=== PATIENT | male | born 1985 | race Caucasian/White ===

== ENCOUNTER 2020-07-27 19:07 | Emergency (ER) | payer OTHER ==
[~2020-07-27] VITALS: Ht 172.7 cm; Wt 77.3 kg
[2020-07-27] MEDS ORDERED: NS 1,000 ML IV ONE (19:45)
[2020-07-27] MEDS ORDERED: ONDANSETRON 4MG/2ML VIAL IV ONE (19:45)
[2020-07-27] MEDS ORDERED: KETOROLAC 30 MG/ML 1ML VIAL IV ONE (19:45)
[2020-07-27] MEDS ORDERED: PANTOPRAZOLE 40MG VIAL (C9113 PER 1) IV ONE (19:45)
[2020-07-27 19:51] LABS: BASO # 0.1 10^3/uL (0.0-0.2); BASO % 0.4 % (0.0-1.0); EOS # 0.1 10^3/uL (0.0-0.5); EOS % 1.2 % (0.0-3.0); HEMATOCRIT 46.6 % (42.0-52.0); HEMOGLOBIN 15.9 g/dl (13.5-17.5); LYMPH # 2.1 10^3/uL (1.5-5.0); LYMPH % 17.6 % (24.0-44.0); MEAN CORPUSCULAR HEMOGLOBIN 29.3 pg (27.0-33.0); MEAN CORPUSCULAR HGB CONC 34.1 g/dl (32.0-36.5); MONO # 1.1 10^3/uL (0.0-0.8); MONO % 8.9 % (0.0-5.0); NEUTROPHILS # 8.4 10^3/uL (1.5-8.5); NEUTROPHILS % 71.6 % (36.0-66.0); PLATELET COUNT, AUTOMATED 252 10^3/uL (150-450); RED BLOOD COUNT 5.42 10^6/uL (4.30-6.10); WHITE BLOOD COUNT 11.8 10^3/uL (4.0-10.0)
[2020-07-27 20:22] LABS: ALBUMIN 4.4 GM/DL (3.2-5.2); ALT/SGPT 30 U/L (12-78); AMYLASE 60 U/L (25-115); BILIRUBIN,DIRECT 0.3 MG/DL (0.0-0.2); BILIRUBIN,TOTAL 0.9 MG/DL (0.2-1.0); BLOOD UREA NITROGEN 12 MG/DL (7-18); CALCIUM LEVEL 9.5 MG/DL (8.5-10.1); CARBON DIOXIDE LEVEL 31 MEQ/L (21-32); CHLORIDE LEVEL 102 MEQ/L (98-107); CREATININE FOR GFR 1.17 MG/DL (0.70-1.30); GLOMERULAR FILTRATION RATE > 60.0 (>60); GLUCOSE, FASTING 95 MG/DL (70-100); LIPASE 107 U/L (73-393); POTASSIUM SERUM 4.6 MEQ/L (3.5-5.1); SODIUM LEVEL 138 MEQ/L (136-145); TOTAL PROTEIN 7.8 GM/DL (6.4-8.2)
--- NOTE | 2020-07-27 20:25 | REPVR ---
PROCEDURE INFORMATION: Exam: XR Complete Acute Abdomen Series Exam date and time: 07/27/2020 8:03 PM Age: 34 years old Clinical indication: Abdominal pain TECHNIQUE: Imaging protocol: XR complete acute abdomen series, including 2 or more views of the abdomen and a single view chest. COMPARISON: No relevant prior studies available. FINDINGS: Lungs: Normal. No consolidation. Pleural space: Normal. No pneumothorax. Heart/Mediastinum: Normal. No cardiomegaly. Gastrointestinal tract: Normal. No bowel dilation. Intraperitoneal space: Normal. No free air. Bones/joints: Normal. No acute fracture. Soft tissues: Normal. IMPRESSION: No acute findings. Electronically signed by: Blake Melchor On 07/27/2020 20:25:56 PM
[2020-07-27] MEDS ORDERED: PEPC1TAB5 PO (21:05)
[2020-07-27] MEDS ORDERED: ZOFR4TAB16 PO (21:05)
[2020-07-27 21:25] VITALS: BP 129/78
--- NOTE | 2020-07-27 22:22 | ECGEPIP ---
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
== END 2020-07-27 21:28 | disposition home or self-care (01) ==
LOC: M ED 19:07
DX: K29.70 Gastritis, unspecified, without bleeding (principal)
CPT/HCPCS: 74021; 80048; 80076; 82150; 83690; 85025; 93005; 96361; 96374; 96375; 99284; C9113; J1885; J2405

== ENCOUNTER 2020-07-28 10:36 | Inpatient (IN) | payer OTHER ==
[~2020-07-28] VITALS: Ht 172.7 cm; Wt 85.0 kg
[~2020-07-28 10:36] MED LIST: PEPC1TAB5 PO; ZOFR4TAB16 PO
[2020-07-28] MEDS ORDERED: NS 1,000 ML IV ONE (12:00)
[2020-07-28] MEDS ORDERED: MORPHINE 4 MG/ML 1ML VIAL/SYRINGE (J2270) IV ONE (12:00)
[2020-07-28] MEDS ORDERED: ONDANSETRON 4MG/2ML VIAL IV ONE (12:00)
--- NOTE | 2020-07-28 12:38 | REP ---
INDICATION: RUQ/epigastric pain COMPARISON: None. TECHNIQUE: Real time pimentel scale ultrasound examination using curved array transducer. FINDINGS: The gallbladder is contracted with multiple gallstones and chronic appearing wall thickening to approximately 3 mm. No pericholecystic fluid is appreciated. The common bile duct is dilated to 6.8 mm although no obvious obstructing calculus is identifiable. Liver and visualized pancreas are normal. Right kidney is normal measuring 10.1 x 5.0 x 4.3 cm without hydronephrosis. No ascites. IMPRESSION: Cholelithiasis with gallbladder wall thickening and mildly prominent common bile duct. <Electronically signed by Ruy Barrios > 07/28/20 [id number]
[2020-07-28 12:59] LABS: BASO % 0.3 % (0.0-1.0); EOS # 0.1 10^3/uL (0.0-0.5); EOS % 0.8 % (0.0-3.0); HEMATOCRIT 43.1 % (42.0-52.0); HEMOGLOBIN 14.6 g/dl (13.5-17.5); LYMPH % 16.4 % (24.0-44.0); MEAN CORPUSCULAR HEMOGLOBIN 29.2 pg (27.0-33.0); MEAN CORPUSCULAR HGB CONC 33.9 g/dl (32.0-36.5); MEAN CORPUSCULAR VOLUME 86.2 fl (80.0-96.0); MONO # 1.2 10^3/uL (0.0-0.8); MONO % 9.8 % (0.0-5.0); NEUTROPHILS # 8.9 10^3/uL (1.5-8.5); NEUTROPHILS % 72.4 % (36.0-66.0); PLATELET COUNT, AUTOMATED 235 10^3/uL (150-450); WHITE BLOOD COUNT 12.3 10^3/uL (4.0-10.0)
--- NOTE | 2020-07-28 13:10 | REP ---
INDICATION: Abdominal Pain COMPARISON: None. TECHNIQUE: PA and lateral. FINDINGS: The mediastinum and cardiac silhouette are normal. The lung vo are clear and without acute consolidation, effusion, or pneumothorax. The skeletal structures are intact and normal. IMPRESSION: No acute cardiopulmonary process. <Electronically signed by Ruy Barrios > 07/28/20 [id number]
[2020-07-28 13:32] LABS: ALBUMIN 3.8 GM/DL (3.2-5.2); ALT/SGPT 132 U/L (12-78); AMYLASE 55 U/L (25-115); BILIRUBIN,DIRECT 1.2 MG/DL (0.0-0.2); BILIRUBIN,TOTAL 2.2 MG/DL (0.2-1.0); BLOOD UREA NITROGEN 10 MG/DL (7-18); CALCIUM LEVEL 9.2 MG/DL (8.5-10.1); CARBON DIOXIDE LEVEL 31 MEQ/L (21-32); CHLORIDE LEVEL 105 MEQ/L (98-107); CK-MB VALUE MASS < 1.0 NG/ML (<3.6); CPK CREATINE PHOSPHOKINASE 89 U/L (39-308); CREATININE FOR GFR 1.16 MG/DL (0.70-1.30); GLOMERULAR FILTRATION RATE > 60.0 (>60); GLUCOSE, FASTING 104 MG/DL (70-100); LIPASE 163 U/L (73-393); MB/CK RELATIVE INDEX 1.12 (< OR =4); POTASSIUM SERUM 4.4 MEQ/L (3.5-5.1); SODIUM LEVEL 140 MEQ/L (136-145); TOTAL PROTEIN 6.6 GM/DL (6.4-8.2); TROPONIN I < 0.02 NG/ML (< 0.10)
[2020-07-28] MEDS ORDERED: PIPERACILLIN/TAZOBACTAM SOD 3.375 GM in D5W MINI-BAG PLUS 50 ML IV ONE (14:45)
[2020-07-28] MEDS ORDERED: KETOROLAC 30 MG/ML 1ML VIAL IV PRN (15:30)
[2020-07-28] MEDS ORDERED: ONDANSETRON 4MG/2ML VIAL IV PRN ×2 (15:30→21:45)
--- NOTE | 2020-07-28 15:31 | HPEPDOC ---
General Date of Admission 07/28/20 Date of Service: Jul 28, 2020 Chief Complaint The patient is a 34-year-old male admitted with a reason for visit of Epigastric Pain, Sob. Source: Patient Exam Limitations: No limitations Timing/Duration: 24 hours Severity: Moderate History of Present Illness Patient is 34 years old male without significant past medical history presented to the hospital with right upper epigastric pain. Patient stated that his pain started around 24 hours ago and became more severe for past 5-6 hours. The pain associated with nausea. In emergency room patient was found to have leukocytosis of 12.3, total bilirubin 2.2, AST 141, ALT 152, alkaline phosphatase 166. Ultrasound showed The gallbladder is contracted with multiple gallstones and chronic appearing wall thickening to approximately 3 mm. No pericholecystic fluid is appreciated. The common bile duct is dilated to 6.8 mm although no obvious obstructing calculus is identifiable. ER contacted Dr. Law, he will proceed with ERCP today Home Medications No Active Prescriptions or Reported Meds Allergies Coded Allergies: No Known Allergies (Unverified , 07/27/20) Past Medical History Medical History No significant past history Family History Both parents have diabetes Social History * Smoker: Denies Alcohol: Denies Drugs: denies A-FIB/CHADSVASC A-FIB History Current/History of A-Fib/PAF?: No Current PO Anticoag Therapy: No Review of Systems Constitutional: Denies: Chills, Fever Eyes: Denies: Pain ENT: Denies: Head Aches Skin: Denies: Rash Cardiovascular: Denies: Chest Pain Gastrointestinal: Reports: Nausea, Abdominal Pain Genitourinary: Denies: Dysuria Hematologic: Denies: Bruising Endocrine: Denies: Polydipsia, Polyphagia Musculoskeletal: Denies: Neck Pain Neurological: Denies: Weakness Psych: Reports: Mood Normal Physical Examination General Exam: Positive: Alert, Cooperative Eye Exam: Positive: PERRLA ENT Exam: Positive: Atraumatic Neck Exam: Positive: Supple; Negative: JVD Chest Exam: Positive: Clear to auscultation Telemetry: Positive: No significant arrhythmia Abdomen Exam: Positive: BS Hypoactive, Tenderness (RUQ) Extremity Exam: Negative: Clubbing Skin Exam: Positive: Nl turgor and temperature Neuro Exam: Positive: Strength at 5/5 X4 ext Psych Exam: Positive: Mental status NL Vital Signs Vital Signs Date Time Temp Pulse Resp B/P (MAP) Pulse Ox O2 Delivery O2 Flow Rate FiO2 07/28/20 13:48 97.5 54 16 119/73 (88) 98 Room Air Laboratory Data Labs 24H Laboratory Tests 2 07/28/20 12:25: Immature Granulocyte % (Auto) 0.3, Neutrophils (%) (Auto) 72.4H, Lymphocytes (%) (Auto) 16.4L, Monocytes (%) (Auto) 9.8H, Eosinophils (%) (Auto) 0.8, Basophils (%) (Auto) 0.3, Neutrophils # (Auto) 8.9H, Lymphocytes # (Auto) 2.0, Monocytes # (Auto) 1.2H, Eosinophils # (Auto) 0.1, Basophils # (Auto) 0.0, Nucleated Red Blood Cells % (auto) 0.0, D-Dimer, Quantitative < 270, Anion Gap 4L, Glomerular Filtration Rate > 60.0, Calcium Level 9.2, Total Bilirubin 2.2#H, Direct Bilirubin 1.2H, Aspartate Amino Transf (AST/SGOT) 141H, Alanine Aminotransferase (ALT/SGPT) 132H, Alkaline Phosphatase 166H, Total Creatine Kinase 89, Creatine Kinase MB < 1.0, Creatine Kinase MB Relative Index 1.12, Troponin I < 0.02, Total Protein 6.6, Albumin 3.8, Albumin/Globulin Ratio 1.4, Amylase Level 55, Lipase 163 07/28/20 13:50: Urine Color FILOMENA, Urine Appearance CLEAR, Urine pH 6.0, Urine Specific [place] 1.020, Urine Protein NEGATIVE, Urine Glucose (UA) NEGATIVE, Urine Ketones NEGATIVE, Urine Blood NEGATIVE, Urine Nitrite NEGATIVE, Urine Bilirubin NEGATIVE, Urine Urobilinogen 4.0H, Urine Leukocyte Esterase NEGATIVE, Urine WBC (Auto) 1, Urine RBC (Auto) 1, Urine Hyaline Casts (Auto) 0, Urine Bacteria (Auto) NEGATIVE, Urine Squamous Epithelial Cells 0, Urine Amorphous Sediment SMALLH, Urine Mucus (Auto) SMALL, Urine Sperm (Auto) 07/28/20 14:37: CBC/BMP Laboratory Tests 07/28/20 12:25 Assessment/Plan Patient is 34 years old male without significant past medical history presented to the hospital with right upper epigastric pain. Patient stated that his pain started around 24 hours ago and became more severe for past 5-6 hours. The pain associated with nausea. In emergency room patient was found to have leukocytosis of 12.3, total bilirubin 2.2, AST 141, ALT 152, alkaline phosphatase 166. Ultrasound showed The gallbladder is contracted with multiple gallstones and chronic appearing wall thickening to approximately 3 mm. No pericholecystic fluid is appreciated. The common bile duct is dilated to 6.8 mm although no obvious obstructing calculus is identifiable. ER contacted Dr. Law, he will proceed with ERCP today Problems (1) Choledocholithiasis with acute cholecystitis Status: Acute Problem Text: Ultrasound showed common bile duct dilatation, gallbladder thickening with multiple gallstones ERCP most likely will be done today IV fluid Zosyn IV Appreciate/agree with GI consult Pain management Zofran Plan / VTE VTE Prophylaxis Ordered?: Yes PJ TRINIDAD DO Jul 28, 2020 15:31
[2020-07-28] MEDS ORDERED: ONDANSETRON 4MG/2ML VIAL IV STA (15:38)
[2020-07-28] MEDS: NS 1,000 ML IV SCH ×2 (15:46→23:00)
[2020-07-28 16:30] VITALS: BP 127/68
[2020-07-28 16:32] LABS: CK-MB VALUE MASS < 1.0 NG/ML (<3.6); CPK CREATINE PHOSPHOKINASE 95 U/L (39-308); MB/CK RELATIVE INDEX 1.05 (< OR =4); TROPONIN I < 0.02 NG/ML (< 0.10)
[2020-07-28] MEDS: MORPHINE 2 MG/ML 1ML VIAL (J2270) IV PRN ×2 (16:37→23:00)
[2020-07-28] MEDS: ONDANSETRON 4MG/2ML VIAL IV PRN ×2 (16:38→22:36)
[2020-07-28] MEDS ORDERED: propofoL 200 MG/20 ML VIAL As Ordered ONE ×2 (17:49→19:45)
[2020-07-28] MEDS ORDERED: ROCURONIUM BROMIDE 50 MG/5 ML VIAL As Ordered ONE (17:49)
[2020-07-28] MEDS ORDERED: LIDOCAINE 2% 100MG/5ML SDV (FOR ANES.) As Ordered ONE (17:49)
[2020-07-28] MEDS ORDERED: MIDAZOLAM INJ 2MG/2ML VIAL (J2250 PER 1MG) As Ordered ONE (17:50)
[2020-07-28] MEDS ORDERED: dexameTHASONE 4 MG/ML 1ML VIAL (J1100 PER 1MG) As Ordered ONE (17:50)
[2020-07-28] MEDS ORDERED: fentaNYL 100 MCG/2 ML INJECTION (J3010) As Ordered ONE (17:50)
[2020-07-28] MEDS ORDERED: ONDANSETRON 4MG/2ML VIAL As Ordered ONE ×2 (17:50→19:12)
[2020-07-28] MEDS ORDERED: SUGAMMADEX SODIUM 500 MG/5 ML VIAL (BRIDION) As Ordered ONE (18:58)
[2020-07-28] MEDS ORDERED: SUCCINYLCHOLINE 100 MG/5 ML SYRINGE (J0330) As Ordered ONE (18:58)
[2020-07-28] MEDS ORDERED: ISOVUE-300 61% 50ML VIAL As Ordered ONE ×2 (19:21→19:41)
--- NOTE | 2020-07-28 19:34 | ECGEPIP ---
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
--- NOTE | 2020-07-28 20:33 | ROOR ---
Patient Name: Severiano Jones Procedure Date: 07/28/2020 7:26 PM Date of : 1985 Age: 34 Room: Main OR Gender: Male Note Status: Finalized Procedure: ERCP Indications: Abdominal pain of suspected biliary origin, Evaluation and possible treatment of bile duct stone(s), Suspected bile duct stone(s), Jaundice Providers: Bryan RILEY MD Referring MD: 2. Inpatient 2. Inpatient Requesting Provider: Medicines: General Anesthesia Complications: No immediate complications. Procedure: Pre-Anesthesia Assessment: - The heart rate, respiratory rate, oxygen saturations, blood pressure, adequacy of pulmonary ventilation, and response to care were monitored throughout the procedure. The Duodenoscope was introduced through the mouth, and advanced to the duodenum and used to inject contrast into the bile duct. The ERCP was accomplished without difficulty. The patient tolerated the procedure well. Findings: The aged or disabled carer film was normal. The esophagus was successfully intubated under direct vision without detailed examination of the pharynx, larynx, and associated structures, and upper GI tract. The upper GI tract was grossly normal. The major papilla was bulging. The major papilla was lacerated. A straight Roadrunner wire was passed into the biliary tree. The bile duct was then deeply cannulated over the guidewire. Contrast was injected. I personally interpreted the bile duct images. Ductal flow of contrast was adequate. Image quality was adequate. The lower third of the main bile duct contained filling defect(s). Choledocholithiasis was found in a nondilated duct. An 8 mm biliary sphincterotomy was made with a traction (standard) sphincterotome using ERBE electrocautery. There was no post-sphincterotomy bleeding. To discover objects, the biliary tree was swept with a 9 mm balloon starting at the bifurcation. Pus was swept from the duct. The biliary tree was swept with a 9 mm balloon starting at the bifurcation. One stone was removed. No stones remained. One 4 Fr by 3 cm temporary stent with no internal flaps was placed into the ventral pancreatic duct. The stent was in good position. Impression: - The major papilla appeared to be bulging. - Choledocholithiasis was found. Complete removal was accomplished by biliary sphincterotomy and balloon extraction. - A biliary sphincterotomy was performed. - The biliary tree was swept and small pus was found. - One temporary stent was placed into the ventral pancreatic duct. Recommendation: - Surgical consultation for consideration of cholecystectomy. - In view of pus, I suspect he has/had cholangitis and would rec cont Zosyn (piperacillin tazobactam) 3.375 gm IV q 6 hr at least another day. - Perform a flat plate abdominal x-ray in 1 week. (I will order as OP) - (to assure pancreatic stent passes spontaneously, as expected) Procedure Code(s): --- Professional --- 27339, Endoscopic retrograde cholangiopancreatography (ERCP); with placement of endoscopic stent into biliary or pancreatic duct, including pre- and post-dilation and guide wire passage, when performed, including sphincterotomy, when performed, each stent [id number], Endoscopic retrograde cholangiopancreatography (ERCP); with removal of calculi/debris from biliary/pancreatic duct(s) 46311, 59, Endoscopic retrograde cholangiopancreatography (ERCP); with sphincterotomy/papillotomy Diagnosis Code(s): --- Professional --- R93.2, Abnormal findings on diagnostic imaging of liver and biliary tract K83.8, Other specified diseases of biliary tract R17, Unspecified jaundice R10.9, Unspecified abdominal pain K80.50, Calculus of bile duct without cholangitis or cholecystitis without obstruction CPT copyright 2019 [employer]. All rights reserved. The codes documented in this report are preliminary and upon car scrubber review may be revised to meet current compliance requirements. Bryan Riley MD Bryan RILEY MD 07/28/2020 8:32:48 PM Electronically signed by Bryan RILEY MD Number of Addenda: 0 Note Initiated On: 07/28/2020 7:26 PM Estimated Blood Loss: Estimated blood loss: none.
[2020-07-28 21:30] VITALS: BP 148/98
[2020-07-28] MEDS ORDERED: LR 1,000 ML IV SCH (21:45)
[2020-07-28] MEDS ORDERED: oxyCODONE 5MG TAB PO PRN (21:45)
[2020-07-28] MEDS ORDERED: fentaNYL 100 MCG/2 ML INJECTION (J3010) IV PRN (21:45)
[2020-07-28 22:00] VITALS: BP 143/101
[2020-07-28 22:15] VITALS: BP 132/82
[2020-07-28 23:00] VITALS: BP 136/80
[2020-07-28] MEDS: PIPERACILLIN/TAZOBACTAM SOD 3.375 GM in D5W MINI-BAG PLUS 50 ML IV SCH (23:00)
[2020-07-29] VITALS (7 sets, daily range): BP systolic 112–141; BP diastolic 70–90
[2020-07-29] MEDS: NS 1,000 ML IV SCH ×3 (04:26→23:10)
[2020-07-29] MEDS: PIPERACILLIN/TAZOBACTAM SOD 3.375 GM in D5W MINI-BAG PLUS 50 ML IV SCH ×4 (06:18→23:10)
[2020-07-29 07:19] LABS: HEMATOCRIT 39.5 % (42.0-52.0); HEMOGLOBIN 13.2 g/dl (13.5-17.5); MEAN CORPUSCULAR HGB CONC 33.4 g/dl (32.0-36.5); MEAN CORPUSCULAR VOLUME 86.8 fl (80.0-96.0); PLATELET COUNT, AUTOMATED 198 10^3/uL (150-450); RED BLOOD COUNT 4.55 10^6/uL (4.30-6.10); WHITE BLOOD COUNT 10.4 10^3/uL (4.0-10.0)
--- NOTE | 2020-07-29 07:30 | ECGEPIP ---
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
[2020-07-29 07:42] LABS: ALBUMIN 3.3 GM/DL (3.2-5.2); ALT/SGPT 448 U/L (12-78); BILIRUBIN,TOTAL 4.8 MG/DL (0.2-1.0); BLOOD UREA NITROGEN 9 MG/DL (7-18); CALCIUM LEVEL 8.5 MG/DL (8.5-10.1); CARBON DIOXIDE LEVEL 30 MEQ/L (21-32); CHLORIDE LEVEL 106 MEQ/L (98-107); CREATININE FOR GFR 1.11 MG/DL (0.70-1.30); GLOMERULAR FILTRATION RATE > 60.0 (>60); GLUCOSE, FASTING 139 MG/DL (70-100); MAGNESIUM LEVEL 1.9 MG/DL (1.8-2.4); POTASSIUM SERUM 4.3 MEQ/L (3.5-5.1); SODIUM LEVEL 140 MEQ/L (136-145); TOTAL PROTEIN 6.2 GM/DL (6.4-8.2)
--- NOTE | 2020-07-29 09:37 | CR.PDOC ---
General Surgery Consultation Date of Consultation 07/29/20 History and Physical CONSULT REPORT FOR: Dr. Acosta REASON FOR CONSULTATION: gallstones HISTORY OF PRESENT ILLNESS: 34 otherwise healthy male admitted yesterday for choledocholithiasis possibly cholangitis, underwent ERCP last night with sphincterotomy, removal of cbd stone, stent placement and has done well postprocedure. This morning he reports feeling well and has tolerated his breakfast without any increase abdominal pain, distention, bloating, nausea or vomiting. Otherwise has been hemodynamically stable. I was asked to see the patient to consider cholecystectomy PAST MEDICAL HISTORY: 1. Denies any chronic medical problems. PAST SURGICAL HISTORY: INCLUDES: 1. Bilateral ankle surgery No intra-abdominal surgery. ALLERGIES: Please see below. FAMILY HISTORY: Noncontributory. HOME MEDICATIONS: Please see below. REVIEW OF SYSTEMS: GENERAL: Patient was in his usual state of health prior to starting her symptoms a few hours prior to presentation to the emergency room yesterday, denies any abnormal weight lo. NECK: Denies any neck pain CARDIOVASCULAR: Denies chest pain and palpitations. MUSCULOSKELETAL: Denies arthralgias, back pain and thrombophlebitis. NEUROLOGIC: Denies headache PSYCHIATRIC: [Denies anxiety and depression. HEMATOLOGY/ONCOLOGY: Denies bleeding or clotting disorder. PULMONARY: Denies chronic cough, dyspnea and wheezing. GASTROINTESTINAL: See HPI. GENITOURINARY: Denies dysuria, frequency, hematuria and nocturia. ENDOCRINE: Denies polydipsia, polyphagia, polyuria, heat or cold intolerance. NUTRITION: Reports good appetite. PHYSICAL EXAMINATION: VITALS SIGNS: Please see below. GENERAL APPEARANCE:looks well, comfortable, not in acute distress, baseline healthy appearance. SKIN: cool, moist. HEENT: Normocephalic, atraumatic. [place] palpebral conjunctiva, anicteric sclerae. Lips and mucosa appear moist. NECK: Supple, no thyromegaly. No obvious jugular venous distention. LUNGS: Clear to auscultation bilaterally. No wheezing appreciated. HEART: No chest wall abnormalities. Regular rate and rhythm with no murmurs appreciated. ABDOMEN: Abdomen is slight round, soft, mild obese. no distention, nontender on palapation, no prior surgical scars, no umbilical hernia. EXTREMITIES: Extremities have no deformities. No edema identified ANCILLARIES: . LABORATORY DATA: Please see below. IMAGING STUDIES: He had a gallbladder ultrasound performed likewise there is available fluoroscopic studies during the ERCP and our [facility] which I reviewed myself IMPRESSION AND PLAN: Choledocholithiasis s/p ERCP gallstones Patient may have had a previous episode in September which was initially treated as gastritis and has a documented episode of choledocholithiasis at this time status post ERCP with stone extraction, sphincterotomy and stent placement. He has done well from this. He has evidence of multiple gallstones inside of his gallbladder which may put him at risk for recurrence of his symptoms and thus would need cholecystectomy whether this be done intervally or during this admission. He is not showing signs of severe inflammatory response. He is bilirubin is, low bit at 4.8. AST and ALT also, slightly which may just be postprocedural swelling. He does have a stent placed to make sure that the biliary tract is open. Clinically he seems improved and is not showing any signs of tenderness or signs of systemic inflammatory response for possible cholangitis, cholecystitis. I spoke to patient regarding his gallstones and need for cholecystectomy to avoid recurrence. Options discussed include same hospitalization cholecystectomy vs interval cholecystectomy. He has not decided yet which option to pursue and will let me know if he wants me to schedule him for surgery this hospitalization or he would go home and follow up in the clinic for interval cholecystectomy. Vital Signs Vital Signs Date Time Temp Pulse Resp B/P (MAP) Pulse Ox O2 Delivery O2 Flow Rate FiO2 07/29/20 06:00 98.9 57 18 120/80 (93) 95 Nasal Cannula 2.0 I&Os I&O- Last 24 Hours up to 6 AM 07/29/20 06:00 Intake Total 3920 ml Balance 3920 ml Laboratory Data Labs 24H Laboratory Tests 2 07/28/20 12:25: Immature Granulocyte % (Auto) 0.3, Neutrophils (%) (Auto) 72.4H, Lymphocytes (%) (Auto) 16.4L, Monocytes (%) (Auto) 9.8H, Eosinophils (%) (Auto) 0.8, Basophils (%) (Auto) 0.3, Neutrophils # (Auto) 8.9H, Lymphocytes # (Auto) 2.0, Monocytes # (Auto) 1.2H, Eosinophils # (Auto) 0.1, Basophils # (Auto) 0.0, Nucleated Red Blood Cells % (auto) 0.0, D-Dimer, Quantitative < 270, Anion Gap 4L, Glomerular Filtration Rate > 60.0, Calcium Level 9.2, Total Bilirubin 2.2#H, Direct Bi lirubin 1.2H, Aspartate Amino Transf (AST/SGOT) 141H, Alanine Aminotransferase (ALT/SGPT) 132H, Alkaline Phosphatase 166H, Total Creatine Kinase 89, Creatine Kinase MB < 1.0, Creatine Kinase MB Relative Index 1.12, Troponin I < 0.02, Total Protein 6.6, Albumin 3.8, Albumin/Globulin Ratio 1.4, Amylase Level 55, Lipase 163 07/28/20 13:50: Urine Color FILOMENA, Urine Appearance CLEAR, Urine pH 6.0, Urine Specific [place] 1.020, Urine Protein NEGATIVE, Urine Glucose (UA) NEGATIVE, Urine Ketones NEGATIVE, Urine Blood NEGATIVE, Urine Nitrite NEGATIVE, Urine Bilirubin NEGATIVE, Urine Urobilinogen 4.0H, Urine Leukocyte Esterase NEGATIVE, Urine WBC (Auto) 1, Urine RBC (Auto) 1, Urine Hyaline Casts (Auto) 0, Urine Bacteria (Auto) NEGATIVE, Urine Squamous Epithelial Cells 0, Urine Amorphous Sediment SMALLH, Urine Mucus (Auto) SMALL, Urine Sperm (Auto) 07/28/20 14:37: Coronavirus (COVID-19)(PCR) NEGATIVE 07/28/20 15:38: Total Creatine Kinase 95, Creatine Kinase MB < 1.0, Creatine Kinase MB Relative Index 1.05, Troponin I < 0.02 07/29/20 06:45: Nucleated Red Blood Cells % (auto) 0.0, Anion Gap 4L, Glomerular Filtration Rate > 60.0, Calcium Level 8.5, Magnesium Level 1.9, Total Bilirubin 4.8#H, Aspartate Amino Transf (AST/SGOT) 304H, Alanine Aminotransferase (ALT/SGPT) 448H, Alkaline Phosphatase 201H, Total Protein 6.2L, Albumin 3.3, Albumin/Globulin Ratio 1.1 CBC/BMP Laboratory Tests 07/28/20 12:25 07/29/20 06:45 Home Medications No Active Prescriptions or Reported Meds Allergies Coded Allergies: No Known Allergies (Unverified , 07/27/20) FIDEL CUMMINGS MD Jul 29, 2020 09:37
--- NOTE | 2020-07-29 11:25 | REP ---
INDICATION: GALLSTONES. COMPARISON: None. TECHNIQUE: Multiple intraoperative images from ERCP examination. FINDINGS: Multiple images demonstrate mildly prominent/minimally dilated common bile duct and prominent intrahepatic biliary system. Small filling defects within the common bile duct may represent choledocholith. The cystic duct origin at the mid CBD demonstrates rounded ovoid appearance with small filling defects and there is no contrast filling to the gallbladder. Correlation with recent cholecystectomy is recommended. Very faint somewhat irregular linear contrast in the right upper quadrant just lateral to the blunted origin of the cystic duct is of uncertain significance, but may reflect contrast within the gastric/duodenal lumen and less likely extravasation. Total fluoroscopic time 3 minutes 5 seconds IMPRESSION: 1. Small filling defects in the common bile duct cannot exclude choledocholiths. 2. No filling to the gallbladder likely representing recent cholecystectomy and correlation is recommended. 3. Faint irregular linear contrast in the right upper quadrant likely represents contrast in the duodenal lumen and less likely extravasation. Correlation is recommended. <Electronically signed by Ruy Barrios > 07/29/20 [id number]
--- NOTE | 2020-07-29 12:26 | IPNPDOC ---
Text Note Date of Service The patient was seen on 07/29/20. NOTE Subjective: No any acute events overnight. Patient denies fever, chills, nausea, vomiting or diarrhea, dysuria Objective: GENERAL APPEARANCE: NAD HEENT: no scleral icterus, no JVD, EOMI CARDIOVASCULAR: S1S2 LUNGS: CTA ABDOMEN: soft & not tender w palpitation MUSCULOSKELETAL: no cyanosis, no swelling INTEGUMENT: no generalized palor NEUROLOGICAL: cranial nerve function from 2-12 intact intact, follows commands, speech not dysarthric Patient is 34 years old male without significant past medical history presented to the hospital with right upper epigastric pain. Patient stated that his pain started around 24 hours ago and became more severe for past 5-6 hours. The pain associated with nausea. In emergency room patient was found to have leukocytosis of 12.3, total bilirubin 2.2, AST 141, ALT 152, alkaline phosphatase 166. Ultrasound showed The gallbladder is contracted with multiple gallstones and chronic appearing wall thickening to approximately 3 mm. No pericholecystic fluid is appreciated. The common bile duct is dilated to 6.8 mm although no obvious obstructing calculus is identifiable. ER contacted Dr. Law, he will proceed with ERCP today Problems (1) Choledocholithiasis with acute cholecystitis Ultrasound showed common bile duct dilatation, gallbladder thickening with multiple gallstones ERCP was done and showed The major papilla appeared to be bulging. - Choledocholithiasis was found. Complete removal was accomplished by biliary sphincterotomy and balloon extraction. - A biliary sphincterotomy was performed. - The biliary tree was swept and small pus was found. - One temporary stent was placed into the ventral pancreatic duct. Zosyn IV Pain management Dr. Akhtar talked to the patient about cholecystectomy. Patient has not decided yet what the appropriate time for surgery: same hospitalization cholecystectomy vs interval cholecystectomy VS,Fishbone, I+O VS, Fishbone, I+O Laboratory Tests 07/28/20 12:25 07/29/20 06:45 Vital Signs Date Time Temp Pulse Resp B/P (MAP) Pulse Ox O2 Delivery O2 Flow Rate FiO2 07/29/20 10:00 98.6 64 18 141/82 (101) 96 Nasal Cannula 2.0 I&O- Last 24 Hours up to 6 AM 07/29/20 06:00 Intake Total 3920 ml Balance 3920 ml PJ TRINIDAD DO Jul 29, 2020 12:26
[2020-07-29] MEDS: PROMETHAZINE INJ 25 MG/ML VIAL (J2550) IV PRN (13:27)
[2020-07-29] MEDS: ENOXAPARIN 40MG/0.4ML SYRINGE (J1650 PER 10MG) SC SCH (18:00)
[2020-07-29] MEDS: ACETAMINOPHEN TAB 650MG DOSE (2X325MG) PO PRN (22:15)
[2020-07-30] VITALS (7 sets, daily range): BP systolic 125–156; BP diastolic 73–98
[2020-07-30] MEDS: PIPERACILLIN/TAZOBACTAM SOD 3.375 GM in D5W MINI-BAG PLUS 50 ML IV SCH ×3 (05:17→19:01)
[2020-07-30] MEDS: ENOXAPARIN 40MG/0.4ML SYRINGE (J1650 PER 10MG) SC SCH (09:00)
[2020-07-30 09:50] LABS: BASO % 0.3 % (0.0-1.0); EOS # 0.1 10^3/uL (0.0-0.5); EOS % 0.6 % (0.0-3.0); HEMATOCRIT 41.2 % (42.0-52.0); HEMOGLOBIN 13.4 g/dl (13.5-17.5); LYMPH # 1.9 10^3/uL (1.5-5.0); LYMPH % 15.4 % (24.0-44.0); MEAN CORPUSCULAR HEMOGLOBIN 28.4 pg (27.0-33.0); MEAN CORPUSCULAR HGB CONC 32.5 g/dl (32.0-36.5); MEAN CORPUSCULAR VOLUME 87.3 fl (80.0-96.0); MONO # 1.3 10^3/uL (0.0-0.8); MONO % 10.2 % (0.0-5.0); PLATELET COUNT, AUTOMATED 202 10^3/uL (150-450); RED BLOOD COUNT 4.72 10^6/uL (4.30-6.10); WHITE BLOOD COUNT 12.3 10^3/uL (4.0-10.0)
[2020-07-30 10:31] LABS: ALBUMIN 3.3 GM/DL (3.2-5.2); BILIRUBIN,DIRECT 1.3 MG/DL (0.0-0.2); BILIRUBIN,TOTAL 2.6 MG/DL (0.2-1.0); TOTAL PROTEIN 6.4 GM/DL (6.4-8.2)
[2020-07-30] MEDS ORDERED: ROCURONIUM BROMIDE 50 MG/5 ML VIAL As Ordered ONE ×2 (11:02→12:19)
[2020-07-30] MEDS ORDERED: MIDAZOLAM INJ 2MG/2ML VIAL (J2250 PER 1MG) As Ordered ONE (11:02)
[2020-07-30] MEDS ORDERED: LIDOCAINE 2% 100MG/5ML SDV (FOR ANES.) As Ordered ONE (11:02)
[2020-07-30] MEDS ORDERED: propofoL 200 MG/20 ML VIAL As Ordered ONE (11:02)
[2020-07-30] MEDS ORDERED: fentaNYL 250 MCG/5 ML INJECTION (J3010) As Ordered ONE (11:02)
[2020-07-30] MEDS ORDERED: BUPIVACAINE HCL 0.25% 30ML VIAL As Ordered ONE (11:15)
[2020-07-30] MEDS ORDERED: LIDOCAINE 1% SDV 30ML VIAL As Ordered ONE (11:15)
[2020-07-30] MEDS ORDERED: ZOSYN 3.375GM VIAL (J2543) As Ordered ONE (11:38)
--- NOTE | 2020-07-30 11:42 | IPNPDOC ---
Text Note Date of Service The patient was seen on 07/30/20. NOTE Subjective: Patient complains of generalized weakness and he feels feverish. He denied nausea or vomiting. He did not have diarrhea Objective: GENERAL APPEARANCE: NAD HEENT: no scleral icterus, no JVD, EOMI CARDIOVASCULAR: S1S2 LUNGS: CTA ABDOMEN: soft & not tender w palpitation MUSCULOSKELETAL: no cyanosis, no swelling INTEGUMENT: no generalized palor NEUROLOGICAL: cranial nerve function from 2-12 intact intact, follows commands, speech not dysarthric Patient is 34 years old male without significant past medical history presented to the hospital with right upper epigastric pain. Patient stated that his pain started around 24 hours ago and became more severe for past 5-6 hours. The pain associated with nausea. In emergency room patient was found to have leukocytosis of 12.3, total bilirubin 2.2, AST 141, ALT 152, alkaline phosphatase 166. Ultrasound showed The gallbladder is contracted with multiple gallstones and chronic appearing wall thickening to approximately 3 mm. No pericholecystic fluid is appreciated. The common bile duct is dilated to 6.8 mm although no obvious obstructing calculus is identifiable. ER contacted Dr. Law, he will proceed with ERCP today Problems (1) Choledocholithiasis with acute cholecystitis Ultrasound showed common bile duct dilatation, gallbladder thickening with multiple gallstones ERCP was done and showed The major papilla appeared to be bulging. - Choledocholithiasis was found. Complete removal was accomplished by biliary sphincterotomy and balloon extraction. - A biliary sphincterotomy was performed. - The biliary tree was swept and small pus was found. - One temporary stent was placed into the ventral pancreatic duct. Continue Zosyn IV Pain management Dr. Akhtar will proceed with cholecystectomy today VS,Fishbone, I+O VS, Fishbone, I+O Laboratory Tests 07/30/20 09:40 Vital Signs Date Time Temp Pulse Resp B/P (MAP) Pulse Ox O2 Delivery O2 Flow Rate FiO2 07/30/20 10:00 98.6 54 16 127/79 (95) 96 Room Air 07/30/20 05:19 2.0 I&O- Last 24 Hours up to 6 AM 07/30/20 06:00 Intake Total 1350 ml Output Total 500 ml Balance 850 ml PJ TRINIDAD DO Jul 30, 2020 11:42
[2020-07-30] MEDS ORDERED: INDOMETHACIN 50 MG SUPPOSITORY (INDOCIN) As Ordered ONE (11:43)
--- NOTE | 2020-07-30 11:52 | IPNPDOC ---
Text Note Date of Service The patient was seen on 07/30/20. NOTE Patient reports slight headache this morning, otherwise is doing well. Afebrile yesterday. He tolerated regular diet. He denies any abdominal discomfort, bloating, nausea VS stable comfortable anicteric sclerae Clear breath sounds bilaterally Regular heart rate and rhythm abdomen soft, nontender,minimally distended Labs reviewed bilirubin trending down Impression/Plan choledocholithiasis s/p ERCP cholelithiasis Patient has been scheduled to undergo robotic-assisted laparoscopic cholecystectomy today. He'll be given ICG preoperatively to help identify the biliary tract and avoid injury. I discussed with the patient the details of the proposed procedure, the benefits of performing the procedure, the most common risks on doing the procedure. This may include risks for bleeding, infection, bile duct injury, bile leakage, injury to nearby bowels and blood vessels as well as service for anesthesia. I have given him a chance to ask questions, voice out concerns. Patient has agreed to proceed VS,Deannae, I+O VS, Deannae, I+O Laboratory Tests 07/30/20 09:40 Vital Signs Date Time Temp Pulse Resp B/P (MAP) Pulse Ox O2 Delivery O2 Flow Rate FiO2 07/30/20 10:00 98.6 54 16 127/79 (95) 96 Room Air 07/30/20 05:19 2.0 I&O- Last 24 Hours up to 6 AM 07/30/20 06:00 Intake Total 1350 ml Output Total 500 ml Balance 850 ml FIDEL CUMMINGS MD Jul 30, 2020 11:52
[2020-07-30] MEDS ORDERED: dexameTHASONE 4 MG/ML 1ML VIAL (J1100 PER 1MG) As Ordered ONE (12:08)
[2020-07-30] MEDS ORDERED: ONDANSETRON 4MG/2ML VIAL As Ordered ONE ×2 (12:08→14:41)
[2020-07-30] MEDS ORDERED: ACETAMINOPHEN 1000MG 100ML IV BTL (OFIRMEV) (J0131 PER 10MG) As Ordered ONE (12:10)
[2020-07-30] MEDS ORDERED: SUGAMMADEX SODIUM 500 MG/5 ML VIAL (BRIDION) As Ordered ONE (12:20)
[2020-07-30] MEDS ORDERED: KETOROLAC 60MG 2ML VIAL As Ordered ONE (12:21)
[2020-07-30] MEDS ORDERED: LR 1,000 ML IV SCH (14:45)
[2020-07-30] MEDS ORDERED: ONDANSETRON 4MG/2ML VIAL IV PRN (14:45)
[2020-07-30] MEDS ORDERED: oxyCODONE 5MG TAB PO PRN (14:45)
[2020-07-30] MEDS ORDERED: fentaNYL 100 MCG/2 ML INJECTION (J3010) As Ordered ONE (14:52)
[2020-07-30] MEDS: fentaNYL 100 MCG/2 ML INJECTION (J3010) IV PRN ×4 (14:55→15:10)
[2020-07-30] MEDS: METOCLOPRAMIDE INJ 10MG/2ML VIAL (J2765 PER 1) IV PRN ×2 (14:55→15:00)
[2020-07-30] MEDS ORDERED: METOCLOPRAMIDE INJ 10MG/2ML VIAL (J2765 PER 1) As Ordered ONE (14:57)
[2020-07-30] MEDS: MORPHINE 2 MG/ML 1ML VIAL (J2270) IV PRN ×5 (15:18→21:39)
[2020-07-30] MEDS ORDERED: PROMETHAZINE INJ 25 MG/ML VIAL (J2550) IV PRN (15:30)
[2020-07-30] MEDS: PROMETHAZINE INJ 25 MG/ML VIAL (J2550) IV PRN (15:45)
[2020-07-30] MEDS: ONDANSETRON 4MG/2ML VIAL IV PRN (19:01)
[2020-07-30] MEDS: ACETAMINOPHEN TAB 650MG DOSE (2X325MG) PO PRN (20:38)
[2020-07-31] MEDS: PIPERACILLIN/TAZOBACTAM SOD 3.375 GM in D5W MINI-BAG PLUS 50 ML IV SCH ×2 (00:34→05:22)
[2020-07-31 02:00] VITALS: BP 148/89
[2020-07-31 06:00] VITALS: BP 117/71
--- NOTE | 2020-07-31 07:37 | ROOPDOC ---
[facility] Report Of Operation Report of Operation DATE OF PROCEDURE: 07/31/20 PREPROCEDURE DIAGNOSES: cholelithiasis, history of choledocholithiasis. POSTPROCEDURE DIAGNOSES: Cholelithiasis, Acute over chronic cholecystitis. PROCEDURE: Robotic-assisted laparoscopic cholecystectomy with use of ICG for biliary tract identification. SURGEON: Raman Akhtar MD MOLDING MANAGER: ANESTHESIA: General Anesthesia. ESTIMATED BLOOD LOSS: Approximately 50 mL. COMPLICATIONS: none. REMARKS: Patient is a healthy 34-year-old male admitted 2 days prior with fever and epigastric pain found to have choledocholithiasis and underwent ERCP 07/28/2020 with resolution of his fever and the abdominal discomfort. I brought him during the same admission for intended laparoscopic cholecystectomy to prevent recurrence of his choledocholithiasis. PROCEDURE NOTE: Gallbladder is markedly thickened which appears chronic but has some acute inflammatory changes including pericholecystic wall edema, gallblad atif full of stones, hydropic in appearance. Cystic duct still remains somewhat under tension, distended but I could not feel any stones within the duct. Gallbladder did not illuminate with firefly in ICG but the cystic duct didn't illuminate along with the common bile duct. DESCRIPTION OF PROCEDURE: Patient is on scheduled antibiotics (Zosyn) for possible cholangitis, 5 mg of I CG IV was given in the preoperative holding area. He was brought to the operating room, laid supine on the table, compression boots placed for DVT prophylaxis. General endotracheal anesthesia started. His abdomen then prepped and draped in usual sterile fashion. Surgical timeout was performed prior to confirm right procedure, right patient identification and other necessary information prior to starting surgery. Entry into the abdomen done through an incision aslightly to the left of the umbilical cleft. A Veress needle was inserted with a controlled fashion. CO2 insufflation started to pressure 15 mmHg. Using the same incision an 8 mm robotic trochar was placed under direct vision laparoscope. The area underneath the insertion site was inspected and no injury found. He was then placed in a degree reverse Trendelenburg. Under direct vision 3 more 8 mm trochars were placed along a row at level to the camera port site at the anterior axillary line, right midclavicular line and left mid clavicular line. The Diveboard robot tower was then maneuvered in place and the trochards docked to the robot. I used a prograsp, forced bipolar, and hook cautery for the procedure with a 30 robotic camera. I unscrubbed and assumed control of the camera and instruments at the surgeon's console. Operative findings: On entry, he has a very redundant and floppy falciform ligament that was partially in our view. His liver is overall smooth in contour, his gallbladder appears tensely distended, very thick gallbladder wall which appears chronic. Also has signs of acute pericholecystic wall edema. The gallbladder partially covered with omentum that was adhered to the underside of the gallbladder wall. The omental adhesions were lysed with cautery to expose the gallbladder. The fundus of the gallbladder was grasped and the gallbladder is elevated superiorly exposing the neck of the gallbladder. The thick visceral peritoneum overlying the neck of the gb is opened up and dissected free both anteriorly and posteriorly to help with retraction of the gallbladder. The hepatocystic triangle was approached and dissected using hook cautery and firely visualizati on of the cystic duct. The gallbladder does not illuminate with firefly though the cystic duct this visible with firefly along with the course of the common bile duct. There was good illumination of the course of the cystic duct. The cystic duct was identified coming off from the neck of the gallbladder, This seems enlarged but I could not palpate any stones. This was circumferentially dissected. Lymph node at the hepatocystic triangle was markedly enlarged, acutely swollen. This was dissected free revealing the cystic artery underneath it. This was similarly circumferentially dissected off surrounding adipose tissue. We continued posterior dissection proximally at the neck of gallbladder to dissect the posterior wall of the gallbladder off the liver plate until a critical view of safety was achieved whereby only the previously identified duct and artery coursing through the neck the gallbladder(photodocumentation done.) At this point the the cystic artery was most accessible and this was clipped 2 times and divided in between the hemlock clips. After again checking her anatomy and verifying with firely the course of thecystic duct and common bile duct, this was also clipped and divided with 2 clips remaining at the cystic duct stump. I used a large Hem-o-mynor clip as the cystic duct appears enlarged.. The rest of the gallbladder was then dissected free of the gallbladder bed using Bovie cautery. While dissecting Glennie, there was a posterior branch of the cystic artery that they did not initially recognize. This caused some bleeding but this was adequately controlled and clipped. After removing the gallbladder, the clips were evaluated likewise the area for bleeding. The blood was suctioned out and hemostasis was thoroughly inspected. During dissection of the gallbladder small hole in the gallbladder wall posteriorly was created with spillage of a small amount of wall stones likewise mucoid fluid consistent with hydrops. The gallbladder was then placed in an Endo Catch bag and retrieved outside through the right axillary port site with partial enlargement of the port site by my child welfare assistant to accomodate the gallbladder. The clips and liver bed was inspected for bleeding and bile leakage and none found. I closed the extraction site with 0 Vicryl using a James Murry device. The abdomen was deflated, The trochars undocked, the robot removed from the field. Rest of the skin incisions closed with 4-0 Monocryl in subcuticular fashion. Dermabond placed to cover the incisions.. Patient was awakened, extubated and brought to recovery room stable. . RAMAN AKHTAR MD Jul 31, 2020 07:37
[2020-07-31 08:14] LABS: BASO % 0.3 % (0.0-1.0); EOS % 0.4 % (0.0-3.0); HEMATOCRIT 40.4 % (42.0-52.0); HEMOGLOBIN 13.4 g/dl (13.5-17.5); LYMPH # 2.3 10^3/uL (1.5-5.0); LYMPH % 21.1 % (24.0-44.0); MEAN CORPUSCULAR HEMOGLOBIN 29.1 pg (27.0-33.0); MEAN CORPUSCULAR HGB CONC 33.2 g/dl (32.0-36.5); MEAN CORPUSCULAR VOLUME 87.8 fl (80.0-96.0); MONO # 1.2 10^3/uL (0.0-0.8); MONO % 11.2 % (0.0-5.0); NEUTROPHILS # 7.4 10^3/uL (1.5-8.5); NEUTROPHILS % 66.7 % (36.0-66.0); PLATELET COUNT, AUTOMATED 196 10^3/uL (150-450); WHITE BLOOD COUNT 11.1 10^3/uL (4.0-10.0)
[2020-07-31 08:37] LABS: ALBUMIN 2.9 GM/DL (3.2-5.2); ALT/SGPT 256 U/L (12-78); BILIRUBIN,DIRECT 0.8 MG/DL (0.0-0.2); BILIRUBIN,TOTAL 1.6 MG/DL (0.2-1.0); BLOOD UREA NITROGEN 12 MG/DL (7-18); CALCIUM LEVEL 8.3 MG/DL (8.5-10.1); CARBON DIOXIDE LEVEL 31 MEQ/L (21-32); CHLORIDE LEVEL 106 MEQ/L (98-107); CREATININE FOR GFR 1.31 MG/DL (0.70-1.30); GLOMERULAR FILTRATION RATE > 60.0 (>60); GLUCOSE, FASTING 93 MG/DL (70-100); POTASSIUM SERUM 4.1 MEQ/L (3.5-5.1); SODIUM LEVEL 141 MEQ/L (136-145); TOTAL PROTEIN 5.9 GM/DL (6.4-8.2)
[2020-07-31] MEDS: ENOXAPARIN 40MG/0.4ML SYRINGE (J1650 PER 10MG) SC SCH (09:00)
[2020-07-31] MEDS ORDERED: FLAG250T PO (09:56)
[2020-07-31] MEDS ORDERED: CIPR-250 PO (09:56)
[2020-07-31 10:00] VITALS: BP 145/91
--- NOTE | 2020-07-31 12:13 | DS.PDOC ---
Discharge Summary General Date of Admission Jul 28, 2020 at 15:17 Date of Discharge 07/31/20 Discharge Summary PROCEDURES PERFORMED DURING STAY: Cholecystectomy ADMITTING DIAGNOSES: acute cholecystitis Choledocholithiasis Cholecystectomy DISCHARGE DIAGNOSES: acute cholecystitis Choledocholithiasis Cholecystectomy COMPLICATIONS/CHIEF COMPLAINT: Gastritis. HISTORY OF PRESENT ILLNESS: Patient is 34 years old male without significant past medical history presented to the hospital with right upper epigastric pain. Patient stated that his pain started around 24 hours ago and became more severe for past 5-6 hours. The pain associated with nausea. In emergency room patient was found to have leukocytosis of 12.3, total bilirubin 2.2, AST 141, ALT 152, alkaline phosphatase 166. Ultrasound showed The gallbladder is contracted with multiple gallstones and chronic appearing wall thickening to approximately 3 mm. No pericholecystic fluid is appreciated. The common bile duct is dilated to 6.8 mm although no obvious obstructing calculus is identifiable. ER contacted Dr. Law, he will proceed with ERCP today HOSPITAL COURSE: During hospital stay following issue addressed (1) Choledocholithiasis with acute cholecystitis Ultrasound showed common bile duct dilatation, gallbladder thickening with multiple gallstones ERCP was done and showed The major papilla appeared to be bulging. - Choledocholithiasis was found. Complete removal was accomplished by biliary sphincterotomy and balloon extraction. - A biliary sphincterotomy was performed. - The biliary tree was swept and small pus was found. - One temporary stent was placed into the ventral pancreatic duct. Patient received treatment with Zosyn IV Pain management Dr. Akhtar proceeded with laparoscopic cholecystectomy yesterday DISCHARGE MEDICATIONS: Please see below. ALLERGIES: Please see below. PHYSICAL EXAMINATION ON DISCHARGE: VITAL SIGNS: Please see below. GENERAL APPEARANCE: NAD HEENT: no scleral icterus, no JVD, EOMI CARDIOVASCULAR: S1S2 LUNGS: CTA ABDOMEN: soft & not tender w palpitation MUSCULOSKELETAL: no cyanosis, no swelling INTEGUMENT: no generalized palor NEUROLOGICAL: cranial nerve function from 2-12 intact intact, follows commands, speech not dysarthric LABORATORY DATA: Please see below. IMAGING: INDICATION: RUQ/epigastric pain COMPARISON: None. TECHNIQUE: Real time pimentel scale ultrasound examination using curved array transducer. FINDINGS: The gallbladder is contracted with multiple gallstones and chronic appearing wall thickening to approximately 3 mm. No pericholecystic fluid is appreciated. The common bile duct is dilated to 6.8 mm although no obvious obstructing calculus is identifiable. Liver and visualized pancreas are normal. Right kidney is normal measuring 10.1 x 5.0 x 4.3 cm without hydronephrosis. No ascites. IMPRESSION: Cholelithiasis with gallbladder wall thickening and mildly prominent common bile duct. PROGNOSIS: Fair ACTIVITY: [As tolerated]. DIET: Regular DISPOSITION: 01 Home, Self-Care. ITEMS TO FOLLOWUP ON ON OUTPATIENT: Follow-up with paper twister in 1 month, with surgeon in 2 weeks DISCHARGE CONDITION: [Stable]. TIME SPENT ON DISCHARGE: Greater than 30 minutes. Vital Signs/I&Os Vital Signs Date Time Temp Pulse Resp B/P (MAP) Pulse Ox O2 Delivery O2 Flow Rate FiO2 07/31/20 10:00 98.9 56 20 145/91 (109) 97 Room Air 07/30/20 05:19 2.0 I&O- Last 24 Hours up to 6 AM 07/31/20 06:00 Intake Total 2170 ml Output Total 1600 ml Balance 570 ml Laboratory Data Labs 24H Laboratory Tests 2 07/31/20 07:46: Immature Granulocyte % (Auto) 0.3, Neutrophils (%) (Auto) 66.7H, Lymphocytes (%) (Auto) 21.1L, Monocytes (%) (Auto) 11.2H, Eosinophils (%) (Auto) 0.4, Basophils (%) (Auto) 0.3, Neutrophils # (Auto) 7.4, Lymphocytes # (Auto) 2.3, Monocytes # (Auto) 1.2H, Eosinophils # (Auto) 0.0, Basophils # (Auto) 0.0, Nucleated Red Blood Cells % (auto) 0.0, Anion Gap 4L, Glomerular Filtration Rate > 60.0, Calcium Level 8.3L, Total Bilirubin 1.6H, Direct Bilirubin 0.8H, Aspartate Amino Transf (AST/SGOT) 59H, Alanine Aminotransferase (ALT/SGPT) 256H, Alkaline Phosphatase 168H, Total Protein 5.9L, Albumin 2.9L, Albumin/Globulin Ratio 1.0 CBC/BMP Laboratory Tests 07/31/20 07:46 Discharge Medications Scheduled Ciprofloxacin HCl (Cipro) 250 Mg Tablet, 250 MG PO BID Metronidazole (Flagyl) 250 Mg Tablet, 1 TAB PO TID Allergies Coded Allergies: No Known Allergies (Unverified , 07/27/20) PJ TRINIDAD DO Jul 31, 2020 12:13
== END 2020-07-31 11:00 | disposition home or self-care (01) | DRG 419 ==
LOC: M ED 10:36 → M ED INP 15:17 → ENRESERV 15:44 → M MS5PR 16:30 → M RR INP 07-30 15:02 → M MS5PR 07-30 16:12
PROVIDERS: ADMIT Internal Medicine; ATTEND Internal Medicine
PROC: 0FC98ZZ Extirpation of Matter from Common Bile Duct, Via Natural or Artificial Opening Endoscopic (ICD-10-PCS; 2020-07-28)
PROC: 0F798DZ Dilation of Common Bile Duct with Intraluminal Device, Via Natural or Artificial Opening Endoscopic (ICD-10-PCS; 2020-07-28)
PROC: 0FT44ZZ Resection of Gallbladder, Percutaneous Endoscopic Approach (ICD-10-PCS; principal; 2020-07-31)
PROC: 8E0W4CZ Robotic Assisted Procedure of Trunk Region, Percutaneous Endoscopic Approach (ICD-10-PCS; 2020-07-31)
DX: K80.42 Calculus of bile duct with acute cholecystitis without obstruction (principal); Z20.828 Contact with and (suspected) exposure to other viral communicable diseases

== ENCOUNTER → 2020-08-18 | Outpatient (CLI) | payer OTHER ==
[~2020-08-18] MED LIST changes: +CIPR-250 PO; +FLAG250T PO
--- NOTE | 2020-08-18 11:43 | REP ---
INDICATION: FOREIGN BODY IN SMALL INTESTINE. Check for presence or absence of pancreatic stent placed during ERCP July 28, 2020. Comparison KUB July 27, 2020. COMPARISON: July 27 and July 28, 2020 prior studies.. TECHNIQUE: Single view KUB. FINDINGS: Bowel gas pattern is normal. No opaque foreign body is seen. Flank stripes and psoas margins are intact. No bony abnormality is seen. IMPRESSION: Unremarkable KUB. No stent or other opaque foreign body is evident. <Electronically signed by Peter Benavidez > 08/18/20 [id number]
== END ==
LOC: M RAD 10:21
PROVIDERS: ATTEND Internal Medicine Gastroenterology
DX: T18.3XXS Foreign body in small intestine, sequela (principal)

== ENCOUNTER 2021-06-11 17:59 | Emergency (ER) | payer OTHER ==
[~2021-06-11] VITALS: Ht 170.2 cm; Wt 82.5 kg
[2021-06-12] MEDS ORDERED: AUGMENTIN 875 MG TAB PO ONE (00:45)
[2021-06-12] MEDS ORDERED: LIDOCAINE 1% MDV 20ML VIAL SC ONE (00:45)
[2021-06-12] MEDS ORDERED: NEOSPORIN OINT 0.9 GM PKT TOP ONE (00:45)
[2021-06-12] MEDS ORDERED: AUGM875T28 PO (01:11)
[2021-06-12 01:32] VITALS: BP 143/96
== END 2021-06-12 01:35 | disposition home or self-care (01) ==
LOC: M ED 17:59
DX: S51.811A Laceration without foreign body of right forearm, initial encounter (principal); W54.0XXA Bitten by dog, initial encounter; Y92.89 Other specified places as the place of occurrence of the external cause